=== PATIENT | female | born 1960 | race Caucasian/White ===

== ENCOUNTER 2019-02-05 14:05 | Inpatient (IN) ==
[2019-02-05] MEDS ORDERED: BISACODYL 5 MG TABLET PO PRN (14:47)
[2019-02-05] MEDS ORDERED: MORPHINE 4 MG/1 ML VIAL IV PRN (14:47)
[2019-02-05] MEDS ORDERED: MAGNESIUM SULF RIDER 4 GM in PREMIX 1 EACH IV PRN (14:52)
[2019-02-05] MEDS ORDERED: MAGNESIUM SULF RIDER 2 GM in PREMIX 1 EACH IV PRN (14:52)
[2019-02-05] MEDS ORDERED: ZALEPLON 5 MG CAPSULE PO PRN (14:52)
[2019-02-05] MEDS ORDERED: ALUM/MAG/SIMETH/LIDO VISC 1:1 30 ML BOTTLE PO PRN (14:52)
[2019-02-05] MEDS ORDERED: hydroCHLOROthiazide 25 MG TABLET PO PRN (15:06)
[2019-02-05] MEDS: LEVOTHYROXINE 125 MCG TABLET PO SCH (15:37)
[2019-02-05] MEDS: ONDANSETRON 4 MG/2 ML VIAL IV PRN ×2 (16:42→20:45)
[2019-02-05] MEDS: ACETAMINOPHEN 325 MG TABLET PO PRN (20:44)
[2019-02-05] MEDS: carvediloL 3.125 MG TABLET PO SCH (20:45)
[2019-02-05] MEDS ORDERED: ENOXAPARIN 40 MG/0.4 ML SYRINGE SUBCUT SCH (21:00)
[2019-02-06] MEDS: ACETAMINOPHEN 325 MG TABLET PO PRN ×2 (04:55→18:30)
[2019-02-06 05:43] LABS: Basophils % 0.3 % (0.0-0.8); Eosinophils % 0.2 % (0.00-10.9); Hemoglobin 14.1 GM/DL (12.0-16.0); Immature Granulocytes % 0.4 %; Immature Granulocytes Absolute 0.04 #; Lymphocytes # 3.8 10*3/uL (1.4-4.0); Mean Corpuscular HGB Conc 33.6 GM/DL (32-36); Mean Corpuscular Volume 95.2 FL (87-102); Mean Platelet Volume 10.8 FL (9.6-12.0); Monocytes % 6.8 % (1.7-12.7); Neutrophils % 57.3 % (38.7-73.9); Platelet Count 207 T/CUMM (130-400); Red Blood Count 4.41 MC/CUMM (3.8-5.5); Red Cell Distribution Width 13.6 % (9.3-17.3); White Blood Count 10.8 T/CUMM (4-12)
[2019-02-06 06:06] LABS: Calcium 9.3 MG/DL (8.5-10.1); Osmolality,Calculated 283.3 MOS/KG (273-304)
[2019-02-06] MEDS: lisinopriL 20 MG TABLET PO SCH (08:25)
[2019-02-06] MEDS: PANTOPRAZOLE 40 MG TABLET PO SCH (08:25)
[2019-02-06] MEDS: carvediloL 3.125 MG TABLET PO SCH (08:26)
[2019-02-06] MEDS: ENOXAPARIN 100 MG/ML SYRINGE SUBCUT SCH ×2 (08:26→21:12)
[2019-02-06] MEDS ORDERED: ENOXAPARIN 40 MG/0.4 ML SYRINGE SUBCUT SCH (09:00)
[2019-02-06] MEDS ORDERED: MAGNESIUM SULF RIDER 2 GM in PREMIX 1 EACH IV PRN (10:12)
[2019-02-06] MEDS: ONDANSETRON 4 MG/2 ML VIAL IV PRN ×3 (10:18→21:09)
[2019-02-06] MEDS: LEVOTHYROXINE 125 MCG TABLET PO SCH ×3 (10:25→16:24)
[2019-02-06] MEDS: SODIUM CHLORIDE 0.9% 1,000 ML IV SCH ×2 (10:25→18:25)
[2019-02-06] MEDS ORDERED: LIDOCAINE 1% 20 ML VIAL ONE (10:26)
[2019-02-06] MEDS ORDERED: HEPARIN/NACL 0.9% 2 UNITS/ML 1,000 ML IV ONE (10:26)
[2019-02-06] MEDS ORDERED: HYDROmorphone 2 MG/1 ML VIAL ONE (10:36)
[2019-02-06] MEDS ORDERED: MIDAZOLAM 2 MG/2 ML VIAL ONE (10:36)
[2019-02-06] MEDS ORDERED: ASPIRIN 325 MG TABLET ONE (11:16)
[2019-02-06] MEDS ORDERED: LABETALOL 20 MG/4 ML SYRINGE IV ONE ×2 (11:25→11:36)
[2019-02-06] MEDS ORDERED: hydrALAZINE 20 MG/1 ML VIAL ONE ×2 (11:46→11:56)
[2019-02-06] MEDS ORDERED: ONDANSETRON 4 MG/2 ML VIAL ONE (11:57)
[2019-02-06] MEDS ORDERED: TICAGRELOR 90 MG TABLET ONE (12:01)
[2019-02-06] MEDS ORDERED: PROMETHAZINE 25 MG/1 ML VIAL ONE (12:05)
[2019-02-06] MEDS ORDERED: NITROGLYCERIN SL 0.4 MG TABLET SL PRN (12:09)
[2019-02-06] MEDS: carvediloL 12.5 MG TABLET PO SCH ×2 (15:39→21:13)
[2019-02-06] MEDS: CETIRIZINE 10 MG TABLET PO SCH (15:39)
[2019-02-06] MEDS: FLUTICASONE 50 MCG NASAL SPRAY 16 GM BOTTLE BOTH NARES SCH (15:44)
[2019-02-06] MEDS: ROSUVASTATIN 20 MG TABLET PO SCH (21:12)
[2019-02-06] MEDS: TICAGRELOR 90 MG TABLET PO SCH (21:13)
[2019-02-07] MEDS: SODIUM CHLORIDE 0.9% 1,000 ML IV SCH ×4 (02:30→23:36)
[2019-02-07 06:16] LABS: Basophils % 0.1 % (0.0-0.8); Hematocrit 39.4 VOL% (35.7-47.0); Hemoglobin 13.4 GM/DL (12.0-16.0); Immature Granulocytes % 0.5 %; Immature Granulocytes Absolute 0.07 #; Lymphocytes % 14.2 % (21.3-54.2); Mean Corpuscular Volume 94.7 FL (87-102); Mean Platelet Volume 11.2 FL (9.6-12.0); Monocytes % 7.3 % (1.7-12.7); Neutrophils % 77.9 % (38.7-73.9); Platelet Count 163 T/CUMM (130-400); Red Blood Count 4.16 MC/CUMM (3.8-5.5); Red Cell Distribution Width 13.8 % (9.3-17.3); White Blood Count 13.9 T/CUMM (4-12)
[2019-02-07 06:58] LABS: CKMB % 5.1 %; Calcium 8.8 MG/DL (8.5-10.1); Osmolality,Calculated 278.5 MOS/KG (273-304)
[2019-02-07 06:59] LABS: Troponin I 35.2 NG/ML (0.00-0.045)
[2019-02-07 07:01] LABS: Risk Ratio 7.03; VLDL CHOLESTEROL 47.4 MG/DL
[2019-02-07] MEDS ORDERED: POTASSIUM CHLORIDE 20 MEQ TABLET PO ONE (07:37)
[2019-02-07] MEDS: LEVOTHYROXINE 125 MCG TABLET PO SCH ×2 (07:53→12:03)
[2019-02-07] MEDS: CETIRIZINE 10 MG TABLET PO SCH ×2 (07:53→08:52)
[2019-02-07] MEDS: ACETAMINOPHEN 325 MG TABLET PO PRN (07:54)
[2019-02-07] MEDS ORDERED: PROMETHAZINE 25 MG/1 ML VIAL IM ONE (07:57)
[2019-02-07] MEDS: ASPIRIN EC 81 MG TABLET PO SCH (08:47)
[2019-02-07] MEDS: lisinopriL 20 MG TABLET PO SCH (08:47)
[2019-02-07] MEDS: FLUTICASONE 50 MCG NASAL SPRAY 16 GM BOTTLE BOTH NARES SCH (08:48)
[2019-02-07] MEDS: PANTOPRAZOLE 40 MG TABLET PO SCH (08:48)
[2019-02-07] MEDS: carvediloL 12.5 MG TABLET PO SCH ×2 (08:48→22:06)
[2019-02-07] MEDS: TICAGRELOR 90 MG TABLET PO SCH ×2 (08:48→22:05)
[2019-02-07 13:59] LABS: CKMB % 3.4 %
[2019-02-07 14:00] LABS: Troponin I 24.2 NG/ML (0.00-0.045)
[2019-02-07 18:24] LABS: CKMB % 2.5 %
[2019-02-07 18:25] LABS: Troponin I 20.6 NG/ML (0.00-0.045)
[2019-02-07] MEDS: ROSUVASTATIN 20 MG TABLET PO SCH (22:06)
[2019-02-07] MEDS: POTASSIUM CHLORIDE 20 MEQ TABLET PO PRN ×2 (22:06→23:45)
[2019-02-07] MEDS: ONDANSETRON 4 MG/2 ML VIAL IV PRN (23:45)
[2019-02-08] MEDS: POTASSIUM CHLORIDE 20 MEQ TABLET PO PRN ×2 (01:08→03:30)
[2019-02-08] MEDS: SODIUM CHLORIDE 0.9% 1,000 ML IV SCH ×2 (03:03→12:13)
[2019-02-08 05:18] LABS: Basophils % 0.2 % (0.0-0.8); Hematocrit 35.4 VOL% (35.7-47.0); Hemoglobin 11.8 GM/DL (12.0-16.0); Immature Granulocytes % 0.6 %; Immature Granulocytes Absolute 0.07 #; Lymphocytes # 3.1 10*3/uL (1.4-4.0); Mean Corpuscular HGB Conc 33.3 GM/DL (32-36); Mean Corpuscular Volume 96.5 FL (87-102); Mean Platelet Volume 11.3 FL (9.6-12.0); Monocytes % 8.3 % (1.7-12.7); Neutrophils % 66.9 % (38.7-73.9); Platelet Count 141 T/CUMM (130-400); Red Blood Count 3.67 MC/CUMM (3.8-5.5); Red Cell Distribution Width 13.8 % (9.3-17.3); White Blood Count 12.7 T/CUMM (4-12)
[2019-02-08 05:41] LABS: Calcium 8.9 MG/DL (8.5-10.1); Osmolality,Calculated 279.3 MOS/KG (273-304)
[2019-02-08] MEDS ORDERED: LEVOTHYROXINE 125 MCG TABLET PO SCH (06:30)
[2019-02-08] MEDS: ASPIRIN EC 81 MG TABLET PO SCH (10:00)
[2019-02-08] MEDS: carvediloL 12.5 MG TABLET PO SCH (10:00)
[2019-02-08] MEDS: lisinopriL 20 MG TABLET PO SCH (10:01)
[2019-02-08] MEDS: PANTOPRAZOLE 40 MG TABLET PO SCH (10:01)
[2019-02-08] MEDS: TICAGRELOR 90 MG TABLET PO SCH (10:01)
[2019-02-08] MEDS: FLUTICASONE 50 MCG NASAL SPRAY 16 GM BOTTLE BOTH NARES SCH (10:01)
[2019-02-08] MEDS: CETIRIZINE 10 MG TABLET PO SCH (10:01)
[2019-02-08 12:25] VITALS: BP 129/68
[2019-02-12] MEDS ORDERED: VIT D3 FOLIC ACID B2 B6 B12 PO SCH (09:00)
== END 2019-02-08 14:00 | disposition home or self-care (01) | DRG 246 ==
LOC: N.TELEN → SUATTDRO 14:20
PROVIDERS: ADMIT Internal Medicine; ATTEND Internal Medicine
PROC: CLCCHCL (ICD-10-PCS; 2019-02-06 11:15)